=== PATIENT | female | born 1960 | race Caucasian/White ===

== ENCOUNTER 2017-01-08 20:16 | Observation (INO) ==
[2017-01-08] MEDS ORDERED: Aspirin 81 MG TAB.CHEW PO ONE (20:24)
--- NOTE | 2017-01-08 20:31 | Emergency Department Note ---
Disposition Clinical Impression: Chest pain Qualifiers: Chest pain type: unspecified Qualified Code(s): R07.9 - Chest pain, unspecified Disposition: Admitted As Inpatient Condition: Fair Referrals: NONE,PCP [Primary Care Provider] - Forms: ED Satisfaction Letter Time of Disposition: 21:33 Chest Pain HPI - General Chief Complaint: ED Chest Pain Stated Complaint: Left side facial/chest pain Time Seen by Provider: 01/08/17 20:23 Source: patient Mode of arrival: ambulatory Limitations: no limitations Vital Signs Reviewed: Yes Nursing Notes Reviewed: Yes - History of Present Illness HPI Narrative: 56-year-old female whose had constant chest pain since last PM. Describes it as midsternal with radiation to her jaw had some numbness in her jaw and some radiation to her arm. He should also complains of shortness of breath that has been going on for about 2 months. Risk factors include family history, hypertension and high cholesterol. Pt complaint: chest pain Onset (ago): day(s) (1) Duration: constant Onset: during rest Pain Location: substernal, left chest Severity scale (1-10): 4 Quality: tightness, aching Pain Radiation: LUE, neck Worsens with: nothing Associated symptoms: Reports: nausea, dyspnea. Denies: vomiting, diaphoresis Treatments prior to arrival chest pain: none - Related Data Home Medications Medication Instructions Recorded Confirmed Atorvastatin [Lipitor] 40 mg PO HS 01/08/17 01/08/17 Duloxetine HCl [Cymbalta] 60 mg PO 01/08/17 Esomeprazole Magnesium [Nexium] 40 mg PO 01/08/17 Etodolac [Lodine] 400 mg PO 01/08/17 Hydrochlorothiazide [Microzide] 12.5 mg PO 01/08/17 Rizatriptan Benzoate [Maxalt] 10 mg PO 01/08/17 Sertraline [Zoloft] 100 mg PO DAILY 01/08/17 01/08/17 Tramadol HCl [Ultram] 50 mg PO TID PRN 01/08/17 01/08/17 clonazePAM [Clonazepam] 2 mg PO 01/08/17 rOPINIRole [Requip] 1 mg PO 01/08/17 traZODone [TraZODone] 50 mg PO 01/08/17 Allergies Allergy/AdvReac Type Severity Reaction Status Date / Time acetaminophen [From Percocet] AdvReac Itching Verified 01/08/17 20:47 hydrocodone [From Vicodin] AdvReac Itching Verified 01/08/17 20:47 Oxycodone [From Percocet] AdvReac Itching Verified 01/08/17 20:47 Constitutional: Denies: fever, chills, weakness, weight change Eyes: Denies: eye pain, eye discharge, vision change ENT ED: Denies: ear pain, throat pain, dental pain, hearing loss, epistaxis, congestion, dysphagia Cardiovascular: Reports: chest pain. Denies: palpitations, dyspnea on exertion , edema, syncope Respiratory: Denies: cough, dyspnea, wheezes, hemoptysis, stridor Gastrointestinal: Reports: nausea. Denies: abdominal pain, vomiting, diarrhea, constipation, hematemesis, melena, hematochezia Genitourinary: Denies: dysuria, frequency, hematuria, discharge Musculoskeletal: Denies: back pain, neck pain, arthralgia, myalgia Integumentary: Denies: rash, abrasion, lesions Neurological: Denies: headache, weakness, numbness, paresthesias, confusion, abnormal gait, vertigo Psychiatric: Denies: anxiety, depression, suicidal thoughts, homicidal thoughts , auditory hallucinations, visual hallucinations Endocrine: Denies: fatigue Hematological/Lymphatic: Denies: easy bleeding, easy bruising Allergic/Immunologic: Denies: facial swelling, urticaria Chest Pain PMH - Past Medical History Medical history: Reports: hyperlipidemia, hypertension Psychiatric history: Reports: no psych history - Social History Smoking Status: Never smoker Alcohol use: Reports: none Drug use: Reports: none Physical Exam - General Limitations: no limitations General appearance: alert, in no apparent distress - Head Head exam: atraumatic, normocephalic, normal inspection - Eye Eye exam: Present: normal appearance, PERRL, EOMI - ENT ENT exam: normal exam, normal oropharynx, mucous membranes moist - Neck Neck exam: Present: normal inspection, full ROM, trachea midline - Chest Chest inspection: Present: normal inspection, symmetric chest wall rise - Respiratory Respiratory exam: Present: normal lung sounds bilaterally - Cardiovascular Cardiovascular exam: Present: regular rate, normal rhythm, normal heart sounds - Abdominal Exam Abdominal exam: Present: soft, Non-Tender. Absent: tenderness, distention, guarding, rebound, rigidity - Extremities Exam Extremities exam: Present: normal inspection, full ROM. Absent: tenderness, pedal edema - Expanded Lower Extremity Exam Neurovascular/Tendon exam: Absent: motor deficit, sensory deficit, tendon deficit Gait: observed and normal - Back Exam Back exam: Present: normal inspection, full ROM. Absent: tenderness - Neurological Exam Neurological exam: Present: alert, oriented X3 - Psychiatric Psychiatric exam: Present: normal affect, normal mood - Skin Skin exam: Present: warm, dry, intact, normal color Course - Reevaluation(s) Reevaluation #1: 56-year-old with no recent cardiac workup comes in complaining of some intermittent chest pressure. Does have risk factors family history. Time: 22:04 - Consultations Consultation #1: Discussed with tristan Giordano. Time: 22:04 Vital Signs Temperature 98.2 F 01/08/17 20:17 Pulse Rate 90 01/08/17 20:17 Respiratory Rate 18 01/08/17 20:17 Blood Pressure 150/91 01/08/17 20:17 O2 Sat by Pulse Oximetry 97 01/08/17 20:17 Temperature 98.2 F 01/08/17 20:17 Pulse Rate 78 01/08/17 20:53 Respiratory Rate 18 01/08/17 20:53 Blood Pressure 119/83 01/08/17 20:53 O2 Sat by Pulse Oximetry 99 01/08/17 20:53 Oxygen Delivery Oxygen Delivery Room Air Chest Pain - Lab Data Lab results reviewed: Yes I reviewed the patient's lab results. Result diagrams: 01/08/17 20:41 01/08/17 20:41 Lab Results 01/08/17 01/08/17 01/08/17 Range/Units 20:41 20:41 20:41 WBC 7.4 (4.3-11.1) K/mcL RBC 4.26 (3.82-4.97) M/mcL Hgb 13.1 (11.5-15.4) g/dL Hct 39.8 (35.3-44.9) % MCV 93.4 (83.0-100.0) fL MCH 30.8 (28.0-33.3) pg MCHC 32.9 (31.6-35.5) g/dL RDW 12.2 (11.5-14.5) % Plt Count 226 (140-400) K/mcL MPV 10.4 (9.4-12.4) fL Immature Gran % 0.4 (0-4) % Seg Neutrophils % 65.1 % Lymphocytes % 27.2 % Monocytes % 4.2 % Eosinophils % 2.7 % Basophils % 0.4 % Neutrophils # 4.8 (1.6-8.9) K/mcL Lymphocytes # 2.0 (0.6-4.6) K/mcL Monocytes # 0.3 (0.0-1.3) K/mcL Eosinophils # 0.2 (0.0-0.6) K/mcL Basophils # 0.0 (0.0-0.2) K/mcL PT 10.9 (9.4-12.1) Seconds INR 1.0 APTT 28.2 (26.0-36.0) Seconds Sodium 145 (136-145) mEq/L Potassium 3.7 (3.5-4.5) mEq/L Chloride 108 (98-109) mEq/L Carbon Dioxide 28 (19-29) mEq/L BUN 21 H (7-20) mg/dL Creatinine 0.82 (0.57-1.11) mg/dL Est GFR ( Amer) > 60 (> 60) Est GFR (Non-Af Amer) > 60 (> 60) BUN/Creatinine Ratio 26 (6-26) Glucose 101 H (70-99) mg/dL Calculated Osmolality 303 H (280-300) Calcium 9.7 (8.6-10.8) mg/dL Troponin I (0-0.03) ng/mL 01/08/17 Range/Units 20:41 WBC (4.3-11.1) K/mcL RBC (3.82-4.97) M/mcL Hgb (11.5-15.4) g/dL Hct (35.3-44.9) % MCV (83.0-100.0) fL MCH (28.0-33.3) pg MCHC (31.6-35.5) g/dL RDW (11.5-14.5) % Plt Count (140-400) K/mcL MPV (9.4-12.4) fL Immature Gran % (0-4) % Seg Neutrophils % % Lymphocytes % % Monocytes % % Eosinophils % % Basophils % % Neutrophils # (1.6-8.9) K/mcL Lymphocytes # (0.6-4.6) K/mcL Monocytes # (0.0-1.3) K/mcL Eosinophils # (0.0-0.6) K/mcL Basophils # (0.0-0.2) K/mcL PT (9.4-12.1) Seconds INR APTT (26.0-36.0) Seconds Sodium (136-145) mEq/L Potassium (3.5-4.5) mEq/L Chloride (98-109) mEq/L Carbon Dioxide (19-29) mEq/L BUN (7-20) mg/dL Creatinine (0.57-1.11) mg/dL Est GFR ( Amer) (> 60) Est GFR (Non-Af Amer) (> 60) BUN/Creatinine Ratio (6-26) Glucose (70-99) mg/dL Calculated Osmolality (280-300) Calcium (8.6-10.8) mg/dL Troponin I 0.01 (0-0.03) ng/mL - Radiology Data Radiology results reviewed: Yes I reviewed the patient's radiology results. Chest X-Ray 01/08/17 20:24 IMPRESSION: 1. No focal airspace disease. D/ / Toñito Alvarez MD / Toñito Alvarez MD Interpreting Provider: Toñito Alvarez MD - EKG Data EKG attestation: Yes I reviewed and interpreted this EKG. EKG shows normal: sinus rhythm Rate: normal Rhythm: NSR Interpretation: no acute changes Heart Score - Score History: Moderately Suspicious EKG: Non Specific repolarisation Disturbance Age: 45-65 Risk Factors: Equal/Greater than 3 risk factor or history of atherosclerotic disease Troponin: Less than normal limit HEART Score Total: 5
[2017-01-08 20:50] LABS: Basophils % 0.4 %; Eosinophils # 0.2 K/mcL (0.0-0.6); Eosinophils % 2.7 %; Hematocrit 39.8 % (35.3-44.9); Hemoglobin 13.1 g/dL (11.5-15.4); Immature Granulocytes % 0.4 % (0-4); Lymphocytes % 27.2 %; Mean Corpuscular HGB Conc 32.9 g/dL (31.6-35.5); Mean Corpuscular Hemoglobin 30.8 pg (28.0-33.3); Mean Corpuscular Volume 93.4 fL (83.0-100.0); Mean Platelet Volume 10.4 fL (9.4-12.4); Monocytes # 0.3 K/mcL (0.0-1.3); Monocytes % 4.2 %; Neutrophils # 4.8 K/mcL (1.6-8.9); Platelet Count 226 K/mcL (140-400); Red Blood Count 4.26 M/mcL (3.82-4.97); Red Cell Distribution Width 12.2 % (11.5-14.5); Segmented Neutrophils % 65.1 %
[2017-01-08 20:58] LABS: Prothrombin Time 10.9 Seconds (9.4-12.1)
[2017-01-08 21:00] LABS: Activated Partial Thrombo Time 28.2 Seconds (26.0-36.0)
[2017-01-08 21:03] LABS: BUN/Creatinine Ratio 26 (6-26); Blood Urea Nitrogen 21 mg/dL (7-20); Calcium 9.7 mg/dL (8.6-10.8); Carbon Dioxide 28 mEq/L (19-29); Chloride 108 mEq/L (98-109); Glucose 101 mg/dL (70-99); Osmolality,Calculated 303 (280-300); Potassium 3.7 mEq/L (3.5-4.5); Sodium 145 mEq/L (136-145); eGFR For African Americans > 60 (> 60); eGFR For Non-African Americans > 60 (> 60)
[2017-01-08] MEDS ORDERED: 0.9 % Sodium Chloride 1,000 ML IVC SCH (23:30)
[2017-01-08] MEDS ORDERED: Ondansetron 4 MG/2 ML VIAL IVP PRN (23:30)
[2017-01-08] MEDS ORDERED: Naloxone 0.4 MG/ML INJ IVP PRN (23:30)
[2017-01-08] MEDS ORDERED: traMADol 50 MG TABLET PO PRN (23:34)
[2017-01-09 01:37] LABS: Basophils % 0.3 %; Eosinophils # 0.2 K/mcL (0.0-0.6); Eosinophils % 3.7 %; Hematocrit 36.5 % (35.3-44.9); Hemoglobin 11.9 g/dL (11.5-15.4); Immature Granulocytes % 0.2 % (0-4); Immature Platelets 4.9 % (1.1-6.1); Lymphocytes # 2.1 K/mcL (0.6-4.6); Lymphocytes % 32.1 %; Mean Corpuscular HGB Conc 32.6 g/dL (31.6-35.5); Mean Corpuscular Hemoglobin 30.8 pg (28.0-33.3); Mean Corpuscular Volume 94.6 fL (83.0-100.0); Mean Platelet Volume 10.8 fL (9.4-12.4); Monocytes # 0.4 K/mcL (0.0-1.3); Monocytes % 5.9 %; Neutrophils # 3.7 K/mcL (1.6-8.9); Platelet Count 208 K/mcL (140-400); Red Blood Count 3.86 M/mcL (3.82-4.97); Red Cell Distribution Width 12.3 % (11.5-14.5); Segmented Neutrophils % 57.8 %
[2017-01-09 01:50] LABS: BUN/Creatinine Ratio 27 (6-26); Blood Urea Nitrogen 23 mg/dL (7-20); Calcium 9.5 mg/dL (8.6-10.8); Carbon Dioxide 31 mEq/L (19-29); Chloride 108 mEq/L (98-109); Glucose 98 mg/dL (70-99); Magnesium 2.2 mg/dL (1.6-2.6); Osmolality,Calculated 302 (280-300); Potassium 3.9 mEq/L (3.5-4.5); Sodium 144 mEq/L (136-145); eGFR For African Americans > 60 (> 60); eGFR For Non-African Americans > 60 (> 60)
--- NOTE | 2017-01-09 04:25 | Internal Med History&Physical ---
Date of Encounter: 01/08/17 Time of Encounter: 23:00 Assessment and Plan (1) Chest pain Current visit: Yes Status: Acute Etiology is undetermined. Patient has similar pain before 5-6 years ago, stress test negative. Patient is pain-free right now. - We will place patient on continuous cardiac monitoring. - We will check 3 sets of troponin. - Recent echo shows pericardial effusion, we will repeat her echo. - We will have stress testing for patient if troponin remains negative and the patient is still pain-free. - Patient has a chest wall tenderness, add naproxen 250 mg by mouth twice a day. Qualifiers: Chest pain type: precordial pain Qualified Code(s): R07.2 - Precordial pain (2) Hypertension Current visit: Yes Status: Acute Continue home medications Qualifiers: Hypertension type: essential hypertension Qualified Code(s): I10 - Essential (primary) hypertension (3) Hyperlipidemia Current visit: Yes Status: Acute Continue home medications Qualifiers: Hyperlipidemia type: other hyperlipidemia Qualified Code(s): E78.4 - Other hyperlipidemia (4) DVT prophylaxis Current visit: Yes Status: Acute Heparin subcutaneously Internal Medicine - H&P: HPI Chief complaint: Chest pain Admitted From: Home Plans for Post Hospital Care: Home History of present illness: Ms. Dye is a 56 year old female with history of hypertension, hyperlipidemia presented to ER for chest pain. Patient said the pain started 8 PM last night, located on left chest and radiated to left face, 8 out of 10, pressure-like, intermittent, every episode lasts about 1 hour. Patient has shortness of breath and nausea but no vomiting. Patient also has diaphoresis. Patient had echocardiogram in 12/18/16 which suggested a small amount of pericardial effusion. Patient denies recent travel or injury. She denies leg swelling or leg pain. Past Med Surg Social Fam HX - Past Medical History Medical history: arthritis, hyperlipidemia, hypertension Psychiatric history: anxiety - Past Surgical History Surgical History: hysterectomy - Social History Smoking Status: Never smoker Smokeless Tobacco Status: No Alcohol use: none Drug use: none - Family History Father Living Status: Age at : 61 Cause of : BRAIN CANCER Hx Family Cardiac Disorders: Yes (CHF) Internal Medicine - H&P: Meds Atorvastatin [Lipitor] 40 mg PO HS 01/08/17 [History] Duloxetine HCl [Cymbalta] 60 mg PO 01/08/17 [History] Esomeprazole Magnesium [Nexium] 40 mg PO 01/08/17 [History] Etodolac [Lodine] 400 mg PO 01/08/17 [History] Hydrochlorothiazide [Microzide] 12.5 mg PO 01/08/17 [History] Rizatriptan Benzoate [Maxalt] 10 mg PO 01/08/17 [History] Sertraline [Zoloft] 100 mg PO DAILY 01/08/17 [History] Tramadol HCl [Ultram] 50 mg PO TID PRN 01/08/17 [History] clonazePAM [Clonazepam] 2 mg PO 01/08/17 [History] rOPINIRole [Requip] 1 mg PO 01/08/17 [History] traZODone [TraZODone] 50 mg PO 01/08/17 [History] 3 Allergy/AdvReac Type Severity Reaction Status Date / Time hydrocodone [From Vicodin] AdvReac Itching Verified 01/08/17 20:47 Oxycodone [From Percocet] AdvReac Itching Verified 01/08/17 20:47 All Systems PM: A 10-system review of systems was performed and is negative for pertinent findings except as documented above in the HPI. - Constitutional Vitals: Temp Pulse Resp BP Pulse Ox 98.3 F 63 16 109/72 95 01/09/17 02:56 01/09/17 02:56 01/09/17 02:56 01/09/17 02:56 01/09/17 02:56 General appearance: Present: A&O X 3, no acute distress, answers questions appropriately - Head Head exam: Present: atraumatic, normocephalic - Eye Eye exam: Present: PERRL, conjuntiva pink, sclera anicteric Pupils: Present: PERRL - Neck Neck exam general surgery: Present: supple, trachea midline. Absent: lymphadenopathy - Respiratory Respiratory exam: Present: chest wall tenderness (On left chest wall), CTAB. Absent: accessory muscle use, rales, rhonchi, wheezes - Cardiovascular Cardiovascular exam: Present: RRR, +S1, +S2. Absent: diastolic murmur, gallop, rubs, systolic murmur - GI/Abdominal GI/Abdominal exam: Present: normal bowel sounds, soft, no peritoneal signs. Absent: distended, tenderness - Extremities Exam Extremities exam: Present: warm, radial pulses palpable and symmetrical. Absent : calf tenderness, cyanotic, pedal edema - Neurological Exam Neurological exam: Present: CN II-XII intact, oriented X3, no focal deficits. Absent: pronater drift, facial droop, speech deficit - Skin Skin exam: Present: dry, intact Internal Med - H&P Results - Labs CBC & Chem 7: 01/09/17 01:12 01/09/17 01:12 Labs: Short CBC 01/09/17 Range/Units 01:12 WBC 6.4 (4.3-11.1) K/mcL Hgb 11.9 (11.5-15.4) g/dL Hct 36.5 (35.3-44.9) % Plt Count 208 (140-400) K/mcL Neutrophils # 3.7 (1.6-8.9) K/mcL BMP 01/09/17 01:12 Sodium 144 Potassium 3.9 Chloride 108 Carbon Dioxide 31 H BUN 23 H Creatinine 0.84 Glucose 98 Calcium 9.5 Cardiac Enzymes 01/09/17 Range/Units 01:12 Troponin I 0.00 (0-0.03) ng/mL - EKG Data -: EKG Interpreted by Myself EKG shows normal: sinus rhythm
[2017-01-09] MEDS ORDERED: *HR* Heparin 5,000 UNIT/ML VIAL SQ SCH (06:00)
[2017-01-09] MEDS ORDERED: Regadenoson 0.4 MG/5 ML SYRINGE IVP ONE (06:25)
--- NOTE | 2017-01-09 10:45 | Nuclear Medicine Stress Report ---
Regadenoson Nuclear Stress Name: Natalia Dye Date of Study: 01/09/2017 Date: 1960 Ht: 64.0 in Medical Record#: [id number] Age: 56 Wt: 187.0 lb Gender: Female Order #: [id number] Location: [facility] Room: [facility] Supervising Provider: Chevy Mak CNP Reading Physician: Bridger Cortez DO, FACC, FASVA Ordering Physician: Haritha Montague CNP Primary Care Physician: Unique Peter CNP Stress Technologist: Janet Rosales STERILE TECHNICIAN, CCT B[employer] Filling Machine Operator: Medardo Piña Indications: Chest Pain Impression: Pharmacologic stress ECG is negative for ischemia at level of heart rate achieved. Gated EF = 63%. Perfusion imaging was negative for ischemia or infarct. History: Hypertension Hypercholesteremia Stress Test Summary: Stress Test Type: Pharmacologic Regadenoson 0.4mg/5ml given IV Baseline Information: Initial Heart Rate: 60 Blood Pressure: 124/82 Stress Information: Test Terminated Due to (primary): As per protocol Maximum Blood Pressure: 140/82 Maximum Heart Rate: 111 Percent Maximum Heart Rate Achieved: 67 Double Product: [id number] METS Reached: 10 Symptoms: No chest symptoms Nuclear Summary: SPECT myocardial perfusion imaging using Tc99m Sestamibi given intravenously was performed at rest and following cardiac stress testing. The resting images were obtained following initial dose of 11.7 mCi. Following stress an additional dose of 32.2 mCi was given at peak exercise or 30 seconds post regadenoson infusion. Medication Given: Time Medication Dose Units Route Findings: Stress Note * Resting ECG demonstrated normal sinus rhythm. * No baseline arrhythmias were noted. * Pharmacologic stress ECG is negative for ischemia at level of heart rate achieved. * No arrhythmias were noted during stress. * Patient had no chest pain during stress. Hemodynamic responses * Normal hemodynamic responses to pharmacologic stress. Study Quality * Study quality is average. Gated EF % * Gated EF = 63%. Left Ventricle * The left ventricle is not dilated. * LVEDV = 87 mL. NORMALS * Normal wall motion. * Normal segmental perfusion in rest. * Normal segmental perfusion in stress. TID * No evidence of transient ischemic dilatation. TID ratio * TID ratio = 0.89. Lung Uptake * There is no evidence of increase lung uptake. Updated by Bridger Cortez DO, MAMI, VIOLA, GAVINO on 01/09/2017 10:38:21 AM electronically signed on 01/09/2017 10:38:45 AM with status of Final
[2017-01-09] MEDS ORDERED: Nitroglycerin 0.4 MG TAB.SUBL SL PRN (13:22)
[2017-01-09 16:11] VITALS: BP 140/72
--- NOTE | 2017-01-09 16:41 | Discharge Summary ---
Date of Encounter: 01/09/17 Time of Encounter: 14:55 - Discharge Diagnosis (1) Chest pain Priority: Primary Status: Acute Comments: Patient reports intermittent chest pain since arrival. She has had another EKG with last episode of chest pain. She was also given nitroglycerin that did not really relieve the pain. Repeat EKG shows sinus bradycardia with a rate of 54 and nonspecific T-wave abnormality. Stress test was negative. Limited echo showed trivial pericardial effusion with LVEF of 55-60% and no evidence of tamponade. Qualifiers: Chest pain type: precordial pain Qualified Code(s): R07.2 - Precordial pain (2) Chest wall pain Priority: Secondary Status: Acute Comments: Patient denies known injury. Pain is reproducible with movement, inspiration, and palpation. Patient to try moist heat and anti-inflammatory medications. Lungs are clear chest x-ray is negative. She denies cough or fever. (3) Hypertension Priority: Secondary Status: Chronic Comments: Chronic. Well controlled. Continue home medications. Qualifiers: Hypertension type: essential hypertension Qualified Code(s): I10 - Essential (primary) hypertension (4) Hyperlipidemia Priority: Secondary Status: Chronic Comments: Chronic. Continue Lipitor. Qualifiers: Hyperlipidemia type: other hyperlipidemia Qualified Code(s): E78.4 - Other hyperlipidemia (5) DVT prophylaxis Priority: Secondary Status: Acute Comments: Heparin subcutaneous. - Discharge Medications Home Medications: Atorvastatin [Lipitor] 40 mg PO HS 01/08/17 [History] Duloxetine HCl [Cymbalta] 60 mg PO DAILY 01/08/17 [History] Esomeprazole Magnesium [Nexium] 40 mg PO DAILY 01/08/17 [History] Hydrochlorothiazide [Microzide] 12.5 mg PO DAILY 01/08/17 [History] Rizatriptan Benzoate [Maxalt] 10 mg PO AD PRN 01/08/17 [History] Sertraline [Zoloft] 100 mg PO DAILY 01/08/17 [History] Tramadol HCl [Ultram] 50 mg PO TID PRN 01/08/17 [History] clonazePAM [Clonazepam] 2 mg PO DAILY 01/08/17 [History] rOPINIRole [Requip] 2 mg PO HS 01/08/17 [History] traZODone [TraZODone] 50 mg PO HS 01/08/17 [History] Etodolac [Etodolac] 500 mg PO BID 01/09/17 [History] Allergies/Adverse Reactions: 3 Allergy/AdvReac Type Severity Reaction Status Date / Time hydrocodone [From Vicodin] AdvReac Itching Verified 01/08/17 20:47 Oxycodone [From Percocet] AdvReac Itching Verified 01/08/17 20:47 Procedures/tests Complete & Pending: Procedures Performed prior 72 hours Category Date Time Status NM mark perf SPECT multi [NM] Routine Exams 01/08/17 23:39 Taken EV limited echocardiogram Routine Y 01/09/17 23:37 Completed SP pharm nuclear stress Routine Y 01/09/17 07:15 Completed Date of admission: 01/08/17 22:42 Primary care physician: PCP NONE Discharging clinician: Haritha Montague Anticipated date of discharge: 01/09/17 - Patient Status Disposition: Home, Self-Care Condition: Good Functional capacity at discharge: independent ambulation Overall status at discharge: patient is back to baseline - Discharge Instructions Instructions: Angina (DC) Forms: Work/School Release Additional Instructions: Follow-up with her primary care physician in the next 7-10 days for recheck. Return to the emergency department as needed for any other problems or concerns , or if your pain returns or worsens You may take Tylenol or Motrin for chest wall pain. Resume your normal activities as tolerated Resume normal home medications. - Diet and Activity Activity: resume usual activities as tolerated Diet: advance to your usual diet Hospital course: Ms. Dye is a 56 year old female with past medical history of hypertension and hyperlipidemia. She presents to the emergency department with complaint of chest pain. Started 8 PM night prior to arrival located left chest radiating to his left face, rated 8 out of 10 and is pressure-like and intermittent. Episode lasts approximately 1 hour. She reports shortness of breath and nausea without vomiting. She also reports diaphoresis. Echocardiogram on 12/18/16 showed a small pericardial effusion. Troponins are negative 3. Chest x-ray is negative. Stress test was negative at the gated EF is 63%. Limited echo done today showed trivial pericardial effusion, LVEF of 55-60% and no evidence of tamponade. Patient denies any known injury, however chest pain is reproducible with movement, deep inspiration, and palpation. Lungs are clear, no Rales, rhonchi, wheezing, rubs. Chest pain is intermittent and primarily with movement. Patient had a repeat EKG today showed sinus bradycardia with nonspecific ST changes. Patient's labs and vital signs are stable and within normal limits. We discussed outpatient treatment by follow-up with primary care, returning if chest pain became worse or returned, anti-inflammatory medication and moist heat to chest wall for pain relief. Patient is stable for discharge. - Time Spent with Patient Total time spent providing and/or coordinating discharge services: Less than 30 minutes - Constitutional Vitals: Temp Pulse Resp BP Pulse Ox 99 F 74 15 140/72 95 01/09/17 16:11 01/09/17 16:11 01/09/17 16:11 01/09/17 16:11 01/09/17 16:11 General appearance: Present: cooperative, A&O X 3, pleasant, no acute distress, answers questions appropriately - Head Head exam: Present: atraumatic, normal inspection, normocephalic - Eye Eye exam: Present: normal appearance, conjuntiva pink, sclera anicteric - Neck Neck exam general surgery: Present: normal inspection, supple, trachea midline. Absent: lymphadenopathy, tenderness - Respiratory Respiratory exam: Present: chest wall tenderness, CTAB. Absent: accessory muscle use, rales, rhonchi, wheezes - Cardiovascular Cardiovascular exam: Present: RRR, +S1, +S2. Absent: diastolic murmur, gallop, rubs, systolic murmur - GI/Abdominal GI/Abdominal exam: Present: normal bowel sounds, soft. Absent: distended, hernia, hepatomegaly, tenderness - Extremities Exam Extremities exam: Present: warm, radial pulses palpable and symmetrical. Absent : calf tenderness, cyanotic, pedal edema - Neurological Exam Neurological exam: Present: alert, oriented X3, no focal deficits. Absent: facial droop, speech deficit - Skin Skin exam: Present: dry, intact, normal color, warm. Absent: rash
--- NOTE | 2017-01-13 07:55 | Electrocardiograph Report ---
[place] [id number] Test Date: 2017-01-08 Pat Name: Natalia Dye Department: 104 Room: 3B44 Gender: F Gas Producer: TOMY : 1960 Requested By: Tray Ramirez Order Number: [id number] Reading MD: Bridger Cortez DO Measurements Intervals [place] Rate: 81 P: 39 SD: 137 QRS: -19 QRSD: 93 T: 77 QT: 385 QTc: 423 Interpretive Statements Sinus rhythm Nonspecific ST-T changes Electronically Signed On 01-09-2017 17:00:09 EDT by Bridger oCrtez DO
--- NOTE | 2017-01-13 08:15 | Electrocardiograph Report ---
[place] [id number] Test Date: 2017-01-09 Pat Name: Natalia Dye Department: 113 Room: 3B44 Gender: Insurance Examiner: MAYELA : 1960 Requested By: Haritha Montague Order Number: [id number] Reading MD: Kelsie Ziegler Measurements Intervals [place] Rate: 54 P: 43 ID: [id number] QRS: -10 QRSD: 97 T: 70 QT: 398 QTc: 383 Interpretive Statements SINUS BRADYCARDIA NONSPECIFIC T-WAVE ABNORMALITY Electronically Signed On 01-12-2017 10:57:24 EDT by Kelsie Zieglre
== END 2017-01-09 17:15 | disposition home or self-care (01) ==
LOC: 3BNU 20:16 → EMEROO 20:16 → 3BNU 23:26
PROVIDERS: ADMIT Internal Medicine; ATTEND Registered Nurse

== ENCOUNTER 2019-11-01 17:36 | Observation (INO) ==
[2019-11-01] MEDS ORDERED: Isovue-370 500 ML BOTTLE IVP ONE (17:53)
[2019-11-01 18:21] LABS: Hematocrit 43.2 % (35.3-44.9); Hemoglobin 13.8 g/dL (11.5-15.4); Mean Corpuscular HGB Conc 31.9 g/dL (31.6-35.5); Mean Corpuscular Hemoglobin 29.7 pg (28.0-33.3); Mean Corpuscular Volume 92.9 fL (83.0-100.0); Mean Platelet Volume 10.8 fL (9.4-12.4); Platelet Count 218 K/mcL (140-400); Red Blood Count 4.65 M/mcL (3.82-4.97); Red Cell Distribution Width 13.2 % (11.5-14.5); White Blood Count 6.7 K/mcL (4.3-11.1)
[2019-11-01 18:30] LABS: INR 0.9; Prothrombin Time 10.3 Seconds (9.4-12.1)
[2019-11-01 18:32] LABS: Activated Partial Thrombo Time 32.8 Seconds (26.0-36.0)
[2019-11-01 18:40] LABS: BUN/Creatinine Ratio 30 (6-26); Blood Urea Nitrogen 28 mg/dL (6-20); Calcium 9.3 mg/dL (8.6-10.3); Carbon Dioxide 33 mEq/L (23-29); Chloride 105 mEq/L (98-107); Creatine Kinase 52 Units/L (30-223); Glucose 94 mg/dL (70-105); Osmolality,Calculated 297 (280-300); Potassium 4.3 mEq/L (3.5-5.1); Sodium 141 mEq/L (136-145); Troponin I < 0.03 ng/mL (< 0.04); eGFR For African Americans > 60 (> 60); eGFR For Non-African Americans > 60 (> 60)
[2019-11-01 18:49] LABS: Bilirubin,Urine Negative (Negative); Blood,Urine Negative (Negative); Clarity,Urine Clear (Clear); Color,Urine Light-Yellow (Yellow); Glucose,Urine (UA) Normal (Normal); Ketones,Urine Negative (Negative); Leukocyte Esterase,Urine Small (Negative); Mucus,Urine Few per lpf (None-Few); Nitrite,Urine Negative (Negative); Protein,Urine Trace mg/dL (Neg-Trace); RBC,Urine 0-3 per hpf (0-3); Specific Gravity,Urine 1.024 (1.010-1.025); Squamous Epithelial Cell,Urine Moderate per hpf (None-Few)
[2019-11-01 19:28] LABS: Thyroid Stimulating Hormone 2.538 mcIU/mL (0.340-5.600)
[2019-11-01] MEDS ORDERED: Aspirin Enteric Coated 325 MG Tablet PO ONE (21:15)
[2019-11-01 22:21] LABS: Amphetamine Screen,Urine Negative ng/mL (Cutoff=1000); Barbiturate Screen,Urine Negative ng/mL (Cutoff=200); Benzodiazepines Screen,Urine Positive ng/mL (Cutoff=200); Cannabinoid Screen,Urine Negative ng/mL (Cutoff = 50); Cocaine Screen,Urine Negative ng/mL (Cutoff= 300); Opiate Screen,Urine Negative ng/mL (Cutoff=300); Phencyclidine Screen,Urine Negative ng/mL (Cutoff=25)
[2019-11-01] MEDS ORDERED: (Rizatriptan Benzoate [Maxalt] 10 MG) PO PRN (22:42)
[2019-11-01] MEDS: traZODone 50 MG TABLET PO SCH (23:06)
[2019-11-02] MEDS: *HR* Heparin 5,000 UNIT/ML VIAL SQ SCH ×2 (06:10→17:43)
[2019-11-02 08:19] LABS: Hematocrit 41.3 % (35.3-44.9); Hemoglobin 13.5 g/dL (11.5-15.4); Mean Corpuscular HGB Conc 32.7 g/dL (31.6-35.5); Mean Corpuscular Hemoglobin 30.5 pg (28.0-33.3); Mean Corpuscular Volume 93.2 fL (83.0-100.0); Mean Platelet Volume 10.6 fL (9.4-12.4); Platelet Count 214 K/mcL (140-400); Red Blood Count 4.43 M/mcL (3.82-4.97); Red Cell Distribution Width 13.3 % (11.5-14.5); White Blood Count 5.9 K/mcL (4.3-11.1)
[2019-11-02] MEDS: Cholecalciferol (D-3) 1,000 UNIT (25MCG) TABLET PO SCH (08:26)
[2019-11-02] MEDS: Pregabalin 75 MG CAPSULE PO SCH ×2 (08:26→20:53)
[2019-11-02] MEDS: BuPROPion XL (24 HR) 150 MG TABLET PO SCH (08:26)
[2019-11-02] MEDS: Aspirin Enteric Coated 81 MG Tablet PO SCH (08:26)
[2019-11-02 08:38] LABS: Alanine Aminotransferase 19 Units/L (7-52); Albumin 4.1 g/dL (3.5-5.7); Alkaline Phosphatase 72 Units/L (34-104); Aspartate Amino Transferase 14 Units/L (13-39); BUN/Creatinine Ratio 28 (6-26); Bilirubin,Total 0.4 mg/dL (0.3-1.0); Blood Urea Nitrogen 26 mg/dL (6-20); Calcium 9.4 mg/dL (8.6-10.3); Carbon Dioxide 27 mEq/L (23-29); Chloride 107 mEq/L (98-107); Chol/HDL Ratio 2.5 (0-4.9); Cholesterol 170 mg/dL (< 200); Globulin 2.1 g/dL (2.4-3.5); Glucose 85 mg/dL (70-105); HDL Cholesterol 67 mg/dL (40-59); LDL Cholesterol,Calculated 83 mg/dL (0-99); Osmolality,Calculated 298 (280-300); Sodium 142 mEq/L (136-145); Total Protein 6.2 g/dL (6.4-8.9); Triglycerides 102 mg/dL (< 150); Troponin I < 0.03 ng/mL (< 0.04); eGFR For African Americans > 60 (> 60); eGFR For Non-African Americans > 60 (> 60)
[2019-11-02] MEDS ORDERED: Acetaminophen 325 MG TABLET PO PRN (08:45)
[2019-11-02 08:46] LABS: Prothrombin Time 11.3 Seconds (9.4-12.1)
[2019-11-02 08:55] LABS: Estimated Average Glucose 126 mg/dl
[2019-11-02] MEDS: Ondansetron 4 MG/2 ML VIAL IVP PRN ×2 (09:27→17:46)
[2019-11-02] MEDS: traZODone 50 MG TABLET PO SCH (20:53)
[2019-11-02] MEDS ORDERED: SUMAtriptan succinate 50 MG TABLET PO PRN (21:53)
[2019-11-03 04:58] LABS: Hematocrit 40.4 % (35.3-44.9); Hemoglobin 12.7 g/dL (11.5-15.4); Mean Corpuscular HGB Conc 31.4 g/dL (31.6-35.5); Mean Corpuscular Hemoglobin 29.9 pg (28.0-33.3); Mean Corpuscular Volume 95.1 fL (83.0-100.0); Mean Platelet Volume 11.1 fL (9.4-12.4); Platelet Count 195 K/mcL (140-400); Red Blood Count 4.25 M/mcL (3.82-4.97); Red Cell Distribution Width 13.2 % (11.5-14.5); White Blood Count 5.6 K/mcL (4.3-11.1)
[2019-11-03 05:14] LABS: BUN/Creatinine Ratio 20 (6-26); Blood Urea Nitrogen 19 mg/dL (6-20); Calcium 8.7 mg/dL (8.6-10.3); Carbon Dioxide 29 mEq/L (23-29); Chloride 106 mEq/L (98-107); Glucose 86 mg/dL (70-105); Osmolality,Calculated 294 (280-300); Potassium 4.1 mEq/L (3.5-5.1); Sodium 141 mEq/L (136-145); eGFR For African Americans > 60 (> 60); eGFR For Non-African Americans 59 (> 60)
[2019-11-03] MEDS: *HR* Heparin 5,000 UNIT/ML VIAL SQ SCH (05:30)
[2019-11-03 07:39] VITALS: BP 101/59
[2019-11-03] MEDS: BuPROPion XL (24 HR) 150 MG TABLET PO SCH (08:38)
[2019-11-03] MEDS: Pregabalin 75 MG CAPSULE PO SCH (08:38)
[2019-11-03] MEDS: Aspirin Enteric Coated 81 MG Tablet PO SCH (08:38)
[2019-11-03] MEDS: Cholecalciferol (D-3) 1,000 UNIT (25MCG) TABLET PO SCH (08:39)
== END 2019-11-03 11:08 | disposition home or self-care (01) ==
LOC: 3BNU 17:36 → EMEROOARM 17:36 → 3BNU 20:32
PROVIDERS: ADMIT Internal Medicine; ATTEND Internal Medicine